=== PATIENT | female | born 1995 | race Two or more races ===

== ENCOUNTER 2020-08-16 10:49 | Emergency (ER) | payer BC ==
[~2020-08-16] VITALS: Ht 160 cm; Wt 90.0 kg
[2020-08-16 11:35] VITALS: BP 136/64
--- NOTE | 2020-08-16 12:23 | RAD ---
ANKLE LEFT 3V Clinical indications: Reason: Left l ankle pain and swelling, pt denies injury or trauma / Findings: No acute fracture or dislocation or osteolytic process is evident. The mortise ankle joint is intact. Impression: No acute osseous abnormality is evident. Electronically signed by: Aj Jansen MD (08/16/2020 12:20 PM) [id number]
--- NOTE | 2020-08-16 12:41 | ED.ADGEN ---
Past Medical History Past Medical History: No Pertinent History Past Surgical History: No Surgical History Smoking Status: Never Smoker Alcohol Use: None General Adult EDM: Chief Complaint: ANKLE PROBLEM HPI: HPI: Patient is a 24 year old female who presents to the emergency room with complaints of left ankle pain. She denies any known injury. She states that a week ago her ankle was bothering her but then it improved. She woke up again today with pain and a mild swelling in her left ankle. Patient denies any numbness, tingling, or weakness of the affected extremity. She states that her ankle feels swollen today. She currently rates her pain a 5 out of 10 on the pain scale, she denies any alleviating factors, the pain is worse with movement. Review of Systems: Review of Systems: Complete ROS is negative unless otherwise noted in HPI. Allergies: Allergies: Allergies Coded Allergies Type Severity Reaction Last Updated Verified No Known Drug Allergies 08/16/20 No Physical Exam: PE: See Above Constitutional: Well developed, well nourished, no acute distress, non-toxic appearance. [] HENT: Normocephalic, atraumatic, bilateral external ears normal, nose normal. [] Eyes: PERRLA, EOMI, conjunctiva normal, no discharge. [] Neck: Normal range of motion, no stridor. [] Cardiovascular:Heart rate regular rhythm Lungs & Thorax: Respirations even and unlabored, no retractions, no respiratory distress Skin: Warm, dry, no erythema, no rash. [] Extremities: Left ankle: Lateral and medial TTP, no crepitus, no obvious deformity, no cyanosis, ROM intact, no edema. [] Neurologic: Alert and oriented X 3, no focal deficits noted. [] Psychologic: Affect normal, judgement normal, mood normal. [] Current Patient Data: Vital Signs: Vital Signs Date Time Temp Pulse Resp B/P (MAP) Pulse Ox O2 Delivery O2 Flow Rate FiO2 08/16/20 11:35 98.5 75 15 136/64 (88) 98 Room Air 98.5 EKG: EKG: [] Heart Score: Risk Factors: Risk Factors: DM, Current or recent (<one month) smoker, HTN, HLP, family history of CAD, obesity. Risk Scores: Score 0 - 3: 2.5% MACE over next 6 weeks - Discharge Home Score 4 - 6: 20.3% MACE over next 6 weeks - Admit for Clinical Observation Score 7 - 10: 72.7% MACE over next 6 weeks - Early Invasive Strategies Radiology/Procedures: Radiology/Procedures: PROCEDURE: ANKLE LEFT 3V ANKLE LEFT 3V Clinical indications: Reason: Left l ankle pain and swelling, pt denies injury or trauma / Findings: No acute fracture or dislocation or osteolytic process is evident. The mortise ankle joint is intact. Impression: No acute osseous abnormality is evident. [] Course & Med Decision Making: Course & Med Decision Making Pertinent Labs and Imaging studies reviewed. (See chart for details) [] Dragon Disclaimer: Dragon Disclaimer: This electronic medical record was generated, in whole or in part, using a voice recognition dictation system. Departure Departure Impression: Primary Impression: Acute left ankle pain Disposition: 01 DC HOME SELF CARE/HOMELESS Condition: STABLE Referrals: HETAL WINSTON MD Patient Instructions: Ankle Pain Additional Instructions: You can take Tylenol or ibuprofen as needed for pain. Recommend application of ice, elevation, and rest of affected extremity. Wear the wrap that was placed as needed for comfort. Follow-up with if symptoms persist. Return to the ER if your symptoms worsen. MIRIAN GAY RECORDS ANALYST Aug 16, 2020 12:41
== END 2020-08-16 12:45 | disposition home or self-care (01) ==
LOC: ER 10:49
DX: M25.572 Pain in left ankle and joints of left foot (principal)
CPT/HCPCS: 73610; 99283